=== PATIENT | male | born 1945 | race Caucasian/White ===

== ENCOUNTER → 2021-10-24 | Outpatient (CLI) | payer BC, OTHER ==
[~2021-10-24] MED LIST: TAMS1CAP17 PO
== END ==
LOC: M LABSMTC 09:19
PROVIDERS: ATTEND Anesthesiology
DX: Z01.812 Encounter for preprocedural laboratory examination (principal); Z20.822 Contact with and (suspected) exposure to COVID-19

== ENCOUNTER 2021-10-28 06:40 | Day surgery (SDC) | payer OTHER ==
[~2021-10-28] VITALS: Ht 175.3 cm; Wt 73.5 kg
[~2021-10-28 06:40] MED LIST changes: +OFLOXACIN 0.3 % (OCUFLOX) OPTH SOL 5ML OD SCH; +PHENYLEPHRINE 2.5% OPHTH SOL 2ML OD SCH; +PROPARACAINE 0.5% OPHTH SOL 15ML OD ONE; +TROPICAMIDE 1% OPHTH SOLN 2ML OD SCH
[2021-10-28] MEDS ORDERED: BSS IRR 500ML/OMIDRIA 4ML IRR BAG (OR ONLY) As Ordered ONE (06:47)
[2021-10-28] MEDS ORDERED: LIDOCAINE 1% SDV 5ML VIAL As Ordered ONE (06:47)
[2021-10-28] MEDS ORDERED: CEFUROXIME 1MG/0.1ML INTRACAMERAL INJ As Ordered ONE (06:47)
[2021-10-28] MEDS ORDERED: POLYTRIM OPTH DROPS 10ML As Ordered ONE (06:50)
[2021-10-28] MEDS ORDERED: MIDAZOLAM INJ 2MG/2ML VIAL (J2250 PER 1MG) As Ordered ONE (07:56)
[2021-10-28] MEDS ORDERED: fentaNYL 100 MCG/2 ML INJECTION As Ordered ONE (07:56)
[2021-10-28] MEDS ORDERED: TRYPAN BLUE 0.06 % 2.25 ML OPHTH SYR (VISIONBLUE) As Ordered ONE ×2 (09:21→09:24)
== END 2021-10-28 10:20 | disposition home or self-care (01) ==
LOC: M SDC 06:40
PROVIDERS: ATTEND Ophthalmology
DX: H25.11 Age-related nuclear cataract, right eye (principal); H53.31 Abnormal retinal correspondence; N40.0 Benign prostatic hyperplasia without lower urinary tract symptoms; Z79.899 Other long term (current) drug therapy; Z88.0 Allergy status to penicillin
CPT/HCPCS: 66982; 92015; J1097; J2250; J3010

== ENCOUNTER → 2025-04-01 | Outpatient (REF) | payer OTHER ==
[~2025-04-01] MED LIST changes: -OFLOXACIN 0.3 % (OCUFLOX) OPTH SOL 5ML OD SCH; -PHENYLEPHRINE 2.5% OPHTH SOL 2ML OD SCH; -PROPARACAINE 0.5% OPHTH SOL 15ML OD ONE; -TROPICAMIDE 1% OPHTH SOLN 2ML OD SCH
== END ==
LOC: M LAB REF 17:08
PROVIDERS: ATTEND Internal Medicine
DX: R31.9 Hematuria, unspecified (principal)